=== PATIENT | female | born 1950 | race African-American/Black ===

== ENCOUNTER 2021-03-19 07:10 | Inpatient (IN) | payer MEDICAID ==
[~2021-03-19] VITALS: Ht 142.2 cm; Wt 67.3 kg
[2021-03-19] MEDS ORDERED: SODIUM CHLORIDE 0.9% 1000ML BAG (SEPSIS BOLUS) IV ONE (07:45)
[2021-03-19 08:10] LABS: CHLORIDE 104 mEq/L (98-107)
[2021-03-19 08:15] LABS: BASOPHILS % 0.3 % (0.0-2.0); EOSINOPHILS % 0.1 % (0.0-5.0); HEMATOCRIT. 40.3 % (36.0-48.0); HEMOGLOBIN. 13.7 g/dL (12.0-16.0); LYMPHOCYTES % 22.7 % (20.0-50.0); MEAN CORPUSCULAR HEMOGLOBIN 30.7 pg (28.0-32.0); MEAN CORPUSCULAR VOLUME 90.3 fL (81.0-99.0); MEAN PLATELET VOLUME 9.3 fl (7.4-10.4); NEUTROPHILS % 70.9 % (40.0-76.0); PLATELET 176 x1000/uL (130-400); PROTHROMBIN TIME 10.3 sec (9.6-11.0); RED BLOOD CELL COUNT 4.46 mill/uL (4.2-5.4); RED CELL DISTRIBUTION WIDTH 12.5 % (11.6-14.6)
[2021-03-19 08:39] LABS: CLARITY URINE CLOUDY (CLEAR); COLOR URINE YELLOW (YELLOW); KETONES URINE NEGATIVE (NEGATIVE); LEUKOCYTE ESTERASE URINE 1+ (NEGATIVE); NITRITE URINE NEGATIVE (NEGATIVE); OCCULT BLOOD URINE NEGATIVE (NEGATIVE); PH URINE 6.5 (4.5-8.0); PROTEIN URINE 1+ (NEGATIVE); SPECIFIC GRAVITY URINE 1.014 (1.005-1.030); UROBILINOGEN URINE 0.2 E.U./dL (0.2-1.0)
[2021-03-19] MEDS ORDERED: CEFTRIAXONE 1 G PREMIX 50 ML IV ONE (09:15)
[2021-03-19] MEDS ORDERED: ASPI-1497 PO (14:41)
[2021-03-19] MEDS ORDERED: LISI40TA13 PO (14:41)
[2021-03-19] MEDS ORDERED: AMLO2.5T45 PO (14:41)
[2021-03-19] MEDS ORDERED: HYDR25TA PO (14:41)
[2021-03-19] MEDS ORDERED: ACETAMINOPHEN 325MG TABLET PO PRN (14:45)
[2021-03-19] MEDS ORDERED: ONDANSETRON HCL 4MG/2ML INJ IV PRN (14:45)
[2021-03-19] MEDS ORDERED: CEFTRIAXONE 1 G PREMIX 50 ML IV SCH (14:45)
[2021-03-19] MEDS ORDERED: INFLUENZA VACCINE 05/PF 0.5 ML SYRINGE IM ONE (15:00)
[2021-03-19 15:08] VITALS: BP 154/52
[2021-03-19 16:06] VITALS: BP 157/75
[2021-03-19] MEDS: SODIUM CHLORIDE 0.9% 1,000 ML IV SCH (16:16)
[2021-03-19] MEDS: ENOXAPARIN 40MG/0.4ML SYR SUBCUT SCH (17:35)
[2021-03-19 20:00] VITALS: BP 139/61
[2021-03-20] VITALS: BP 154/72
[2021-03-20 04:00] VITALS: BP 135/56
[2021-03-20] MEDS: SODIUM CHLORIDE 0.9% 1,000 ML IV SCH ×2 (04:38→17:07)
[2021-03-20 07:05] LABS: BASOPHILS % 0.2 % (0.0-2.0); EOSINOPHILS % 1.1 % (0.0-5.0); HEMATOCRIT. 39.7 % (36.0-48.0); HEMOGLOBIN. 13.3 g/dL (12.0-16.0); LYMPHOCYTES % 42.7 % (20.0-50.0); MEAN CORPUSCULAR HEMOGLOBIN 30.5 pg (28.0-32.0); MEAN CORPUSCULAR VOLUME 90.9 fL (81.0-99.0); MEAN PLATELET VOLUME 9.7 fl (7.4-10.4); MONOCYTES % 10.5 % (2.0-8.0); NEUTROPHILS % 45.5 % (40.0-76.0); PLATELET 163 x1000/uL (130-400); RED BLOOD CELL COUNT 4.36 mill/uL (4.2-5.4); RED CELL DISTRIBUTION WIDTH 12.9 % (11.6-14.6)
[2021-03-20 08:00] VITALS: BP 145/52
[2021-03-20 08:07] LABS: CHLORIDE 109 mEq/L (98-107)
[2021-03-20] MEDS ORDERED: HYDROCHLOROTHIAZIDE 25MG TABLET PO SCH (09:00)
[2021-03-20] MEDS ORDERED: PANTOPRAZOLE SODIUM 40 MG/VIAL IV SCH (09:00)
[2021-03-20] MEDS ORDERED: LISINOPRIL 40MG TABLET PO SCH (09:00)
[2021-03-20] MEDS ORDERED: ASPIRIN 81MG TABLET PO SCH (09:00)
[2021-03-20] MEDS ORDERED: AMLODIPINE 2.5MG TABLET PO SCH (09:00)
[2021-03-20] MEDS ORDERED: CEFTRIAXONE 1,000 MG in DEXTROSE 5% WATER 50 ML IV SCH (09:00)
[2021-03-20 12:00] VITALS: BP 130/43
[2021-03-20] MEDS ORDERED: AMLO2.5T45 PO (15:16)
[2021-03-20] MEDS ORDERED: NITR100C MT (15:17)
[2021-03-20] MEDS ORDERED: POTASSIUM CHLORIDE 20MEQ TABLET SR PO NR (15:30)
[2021-03-20 15:57] VITALS: BP 159/53
[2021-03-20] MEDS: ENOXAPARIN 40MG/0.4ML SYR SUBCUT SCH (17:07)
[2021-03-20 18:35] VITALS: BP 159/53
[2021-03-21] MEDS ORDERED: AMLODIPINE 5MG TABLET PO SCH (09:00)
== END 2021-03-20 19:05 | disposition home or self-care (01) | DRG 463 ==
LOC: ER 07:32 → EDBEDREQSVC 09:15 → EDBEDREQTM 09:15 → EDBEDREQ 09:15 → 6WST 09:53 → EDBEDREQ 10:15 → EDBEDREQTM 10:15 → ENRESERV 12:29
PROVIDERS: ADMIT Internal Medicine; ATTEND Internal Medicine
DX: N39.0 Urinary tract infection, site not specified (principal); E86.0 Dehydration; E87.6 Hypokalemia; I10 Essential (primary) hypertension; T50.2X5A Adverse effect of carbonic-anhydrase inhibitors, benzothiadiazides and other diuretics, initial encounter; Z79.82 Long term (current) use of aspirin; Z79.899 Other long term (current) drug therapy; Y92.89 Other specified places as the place of occurrence of the external cause
CPT/HCPCS: 36415; 71045; 80048; 80053; 81003; 82962; 83605; 84145; 84484; 85025; 90686; 93005; 97162; 99285; C9113; J0696; J1650; J2405; J7030; J7060

== ENCOUNTER 2022-06-30 13:12 | Inpatient (IN) | payer MEDICAID ==
[~2022-06-30] VITALS: Ht 157.5 cm; Wt 66.4 kg
[~2022-06-30 13:12] MED LIST: AMLO2.5T45 PO; ASPI-1497 PO; LISI40TA13 PO; NITR100C MT
[2022-06-30 15:21] LABS: BASOPHILS % 0.1 % (0.0-2.0); EOSINOPHILS % 0.1 % (0.0-5.0); HEMATOCRIT. 39.9 % (36.0-48.0); HEMOGLOBIN. 13.2 g/dL (12.0-16.0); LYMPHOCYTES % 14.5 % (20.0-50.0); MEAN CORPUSCULAR HEMOGLOBIN 30.8 pg (28.0-32.0); MEAN CORPUSCULAR VOLUME 92.6 fL (81.0-99.0); MEAN PLATELET VOLUME 9.8 fl (7.4-10.4); MONOCYTES % 10.7 % (2.0-8.0); NEUTROPHILS % 74.6 % (40.0-76.0); PLATELET 143 x1000/uL (130-400); RED BLOOD CELL COUNT 4.31 mill/uL (4.2-5.4); RED CELL DISTRIBUTION WIDTH 13.3 % (11.6-14.6)
[2022-06-30 15:31] LABS: CHLORIDE 99 mEq/L (98-107)
[2022-06-30] MEDS ORDERED: SODIUM CHLORIDE 0.9% 1,000 ML IV ONE (16:00)
[2022-06-30] MEDS ORDERED: POTASSIUM CHLORIDE 20MEQ/PACKET PO NR (18:00)
[2022-06-30] MEDS ORDERED: CEFTRIAXONE 1 G PREMIX 50 ML IV NR (18:30)
[2022-06-30] MEDS ORDERED: SODIUM CHLORIDE 0.9% 1,000 ML IV NR (18:30)
[2022-07-01] VITALS (7 sets, daily range): BP systolic 114–138; BP diastolic 43–78
[2022-07-01] MEDS ORDERED: ACETAMINOPHEN 325MG TABLET PO PRN (09:45)
[2022-07-01] MEDS ORDERED: DIPHENHYDRAMINE 50MG/ML VIAL IV PRN (09:45)
[2022-07-01] MEDS ORDERED: ONDANSETRON HCL 4MG/2ML INJ IV PRN (09:45)
[2022-07-01] MEDS ORDERED: IPRATROPIUM/ALBUTEROL 0.5-3(2.5)MG/3ML NEB HHN PRN (09:45)
[2022-07-01] MEDS ORDERED: POTASSIUM CHLORIDE INJ 40 MEQ in DEXT 5% WATER 250 ML IV ONE (09:45)
[2022-07-01] MEDS ORDERED: ALBUTEROL (0.083%) 2.5MG/3ML NEB HHN PRN (10:00)
[2022-07-01] MEDS ORDERED: IPRATROPIUM BROMIDE (0.02%) 0.5MG/2.5ML NEB HHN PRN (10:00)
[2022-07-01] MEDS: SODIUM CHLORIDE 0.9% 1,000 ML IV SCH (10:24)
[2022-07-01] MEDS: KCL 20MEQ/100ML X 2 FOR TOTAL KCL 40MEQ/200ML IV SCH ×2 (11:32→16:09)
[2022-07-01 16:01] LABS: CLARITY URINE CLEAR (CLEAR); COLOR URINE YELLOW (YELLOW); KETONES URINE NEGATIVE (NEGATIVE); LEUKOCYTE ESTERASE URINE TRACE (NEGATIVE); NITRITE URINE NEGATIVE (NEGATIVE); OCCULT BLOOD URINE 2+ (NEGATIVE); PH URINE 5.5 (4.5-8.0); PROTEIN URINE 2+ (NEGATIVE); SPECIFIC GRAVITY URINE 1.013 (1.005-1.030); UROBILINOGEN URINE 0.2 E.U./dL (0.2-1.0)
[2022-07-01] MEDS ORDERED: CEFTRIAXONE 1,000 MG in DEXTROSE 5% WATER 50 ML IV SCH (21:00)
[2022-07-02] VITALS (7 sets, daily range): BP systolic 116–146; BP diastolic 40–98
[2022-07-02] MEDS: SODIUM CHLORIDE 0.9% 1,000 ML IV SCH ×2 (02:40→13:45)
[2022-07-02 05:46] LABS: HEMATOCRIT. 34.8 % (36.0-48.0); HEMOGLOBIN. 11.6 g/dL (12.0-16.0); MEAN CORPUSCULAR HEMOGLOBIN 30.5 pg (28.0-32.0); MEAN CORPUSCULAR VOLUME 91.3 fL (81.0-99.0); MEAN PLATELET VOLUME 9.4 fl (7.4-10.4); PLATELET 144 x1000/uL (130-400); RED BLOOD CELL COUNT 3.81 mill/uL (4.2-5.4); RED CELL DISTRIBUTION WIDTH 13.6 % (11.6-14.6)
[2022-07-02 07:11] LABS: CHLORIDE 107 mEq/L (98-107)
[2022-07-02] MEDS: CLONIDINE 0.1MG TABLET PO PRN (08:43)
[2022-07-02 11:40] LABS: PLATELET ESTIMATE NORMAL
[2022-07-02] MEDS: GUAIFENESIN-DM 200MG-20MG/10ML UDC PO PRN (15:59)
[2022-07-02] MEDS ORDERED: IPRATROPIUM/ALBUTEROL 0.5-3(2.5)MG/3ML NEB HHN SCH (18:00)
[2022-07-02] MEDS: MEROPENEM 1,000 MG in SODIUM CHLORIDE 0.9% 100 ML IV SCH (18:41)
[2022-07-02] MEDS: IPRATROPIUM BROMIDE (0.02%) 0.5MG/2.5ML NEB HHN SCH (21:00)
[2022-07-02] MEDS: ALBUTEROL (0.083%) 2.5MG/3ML NEB HHN SCH (21:00)
[2022-07-03] MEDS: IPRATROPIUM BROMIDE (0.02%) 0.5MG/2.5ML NEB HHN SCH ×4 (01:57→21:01)
[2022-07-03] MEDS: ALBUTEROL (0.083%) 2.5MG/3ML NEB HHN SCH ×4 (01:57→21:01)
[2022-07-03] MEDS: MEROPENEM 1,000 MG in SODIUM CHLORIDE 0.9% 100 ML IV SCH ×3 (01:58→20:33)
[2022-07-03 04:00] VITALS: BP 114/33
[2022-07-03 07:16] LABS: HEMATOCRIT. 33.6 % (36.0-48.0); HEMOGLOBIN. 11.4 g/dL (12.0-16.0); MEAN CORPUSCULAR HEMOGLOBIN 30.9 pg (28.0-32.0); MEAN CORPUSCULAR VOLUME 91.1 fL (81.0-99.0); MEAN PLATELET VOLUME 9.7 fl (7.4-10.4); PLATELET 167 x1000/uL (130-400); RED BLOOD CELL COUNT 3.69 mill/uL (4.2-5.4); RED CELL DISTRIBUTION WIDTH 13.6 % (11.6-14.6)
[2022-07-03 08:08] LABS: CHLORIDE 110 mEq/L (98-107)
[2022-07-03 12:00] VITALS: BP 124/53
[2022-07-03 12:37] LABS: PLATELET ESTIMATE NORMAL
[2022-07-03] MEDS ORDERED: LIDOCAINE HCL 1% 10 MG/ML 10ML VIAL ONE (13:22)
[2022-07-03] MEDS: SODIUM CHLORIDE 0.9% 1,000 ML IV SCH (13:50)
[2022-07-03 16:00] VITALS: BP 147/60
[2022-07-03] MEDS: GUAIFENESIN-DM 200MG-20MG/10ML UDC PO PRN ×2 (16:09→20:34)
[2022-07-03 20:30] VITALS: BP 152/60
[2022-07-04] VITALS: BP 147/62
[2022-07-04] MEDS: IPRATROPIUM BROMIDE (0.02%) 0.5MG/2.5ML NEB HHN SCH ×3 (03:22→13:35)
[2022-07-04] MEDS: ALBUTEROL (0.083%) 2.5MG/3ML NEB HHN SCH ×3 (03:22→13:37)
[2022-07-04 04:00] VITALS: BP 163/66
[2022-07-04] MEDS: CLONIDINE 0.1MG TABLET PO PRN (05:16)
[2022-07-04] MEDS: SODIUM CHLORIDE 0.9% 1,000 ML IV SCH (05:17)
[2022-07-04 08:00] VITALS: BP 121/56
[2022-07-04] MEDS: MEROPENEM 1,000 MG in SODIUM CHLORIDE 0.9% 100 ML IV SCH (10:04)
[2022-07-04] MEDS: GUAIFENESIN-DM 200MG-20MG/10ML UDC PO PRN (11:40)
[2022-07-04 12:00] VITALS: BP 140/64
[2022-07-04] MEDS ORDERED: ENOXAPARIN 40MG/0.4ML SYR SUBCUT SCH (12:30)
[2022-07-04 15:01] VITALS: BP 122/80
[2022-07-04 16:00] VITALS: BP 143/64
[2022-07-04] MEDS ORDERED: MEROPENEM 1000MG in NORMAL SALINE 100ML IV SCH (18:00)
== END 2022-07-04 15:30 | disposition home health service (06) | DRG 720 ==
LOC: ER 13:12 → MICUSO 19:03 → 7WST 07-01 01:35
PROVIDERS: ADMIT Internal Medicine; ATTEND Internal Medicine
PROC: 02HV33Z Insertion of Infusion Device into Superior Vena Cava, Percutaneous Approach (ICD-10-PCS; principal; 2022-07-03)
PROC: B548ZZA Ultrasonography of Superior Vena Cava, Guidance (ICD-10-PCS; 2022-07-03)
DX: A41.50 Gram-negative sepsis, unspecified (principal); J96.00 Acute respiratory failure, unspecified whether with hypoxia or hypercapnia; N17.9 Acute kidney failure, unspecified; E44.0 Moderate protein-calorie malnutrition; N12 Tubulo-interstitial nephritis, not specified as acute or chronic; E87.6 Hypokalemia; K59.00 Constipation, unspecified; Z20.822 Contact with and (suspected) exposure to COVID-19; D64.9 Anemia, unspecified; I10 Essential (primary) hypertension; Z68.26 Body mass index [BMI] 26.0-26.9, adult; Z79.899 Other long term (current) drug therapy
CPT/HCPCS: 36415; 36573; 71045; 74176; 80048; 80053; 81003; 83605; 84145; 84484; 85025; 85379; 87077; 87186; 87426; 93970; 94640; 99291; C1725; C1760; C1769; J0696; J1650; J2185; J3480; J3490; J7030; J7050; J7060